=== PATIENT | female | born 1990 | race Two or more races ===

== ENCOUNTER 2018-04-06 08:41 | Emergency (ER) | payer SELFPAY ==
[~2018-04-06] VITALS: Ht 167.6 cm; Wt 72.5 kg
[2018-04-06 08:45] VITALS: BP 114/74
[2018-04-06 09:11] LABS: CULTURE INDICATED? YES; MICROSCOPIC INDICATED
[2018-04-06 11:13] LABS: BASOPHILS # (AUTO) 0.03 x10^3/uL (0-0.1); BASOPHILS % (AUTO) 1 % (0-1); EOSINOPHILS # (AUTO) 0.07 x10^3/uL (0-0.4); EOSINOPHILS % (AUTO) 1 % (1-7); LYMPHOCYTES % (AUTO) 34 % (22-44); MD NO; MEAN CORPUSCULAR HEMOGLOBIN 32.2 pg (27.0-34.8); MEAN CORPUSCULAR HGB CONC 34.4 g/dL (32.4-35.8); MEAN CORPUSCULAR VOLUME 93.6 fL (80-100); MEAN PLATELET VOLUME 8.5 fL (7.4-10.4); MONOCYTES # (AUTO) 0.33 x10^3/uL (0.2-0.8); MONOCYTES % (AUTO) 7 % (2-9); NEUTROPHILS # (AUTO) 2.86 x10^3/uL (1.8-6.8); NEUTROPHILS % (AUTO) 57 % (42-75); PLATELET COUNT 285 x10^3/uL (130-400); RED BLOOD COUNT 4.73 x10^6/uL (3.82-5.3); RED CELL DISTRIBUTION WIDTH 11.7 % (9.6-15.2)
--- NOTE | 2018-04-06 11:25 | NUR ---
NO ANSWER IN LOBBY AT THIS TIME.
[2018-04-06 11:27] LABS: ALBUMIN 3.9 g/dL (3.4-5.0); ANION GAP 7 mmol/L (5-15); CALCIUM 9.4 mg/dL (8.5-10.1); CHLORIDE 106 mmol/L (98-107)
--- NOTE | 2018-04-06 11:30 | NUR ---
NIL FOR REPEAT VS.
[2018-04-06 11:32] LABS: ALANINE AMINOTRANSFERASE 23 U/L (12-78); ALKALINE PHOSPHATASE 67 U/L (45-117); BILIRUBIN,TOTAL 0.5 mg/dL (0.2-1.0); TOTAL PROTEIN 8.1 g/dL (6.4-8.2)
--- NOTE | 2018-04-06 11:45 | NUR ---
NO ANSWER IN LOBBY AT THIS TIME.
--- NOTE | 2018-04-06 12:06 | NUR ---
NO ANSWER IN LOBBY AT THIS TIME.
== END 2018-04-06 12:08 | disposition left against medical advice (07) ==
LOC: ED 12:02
DX: R19.7 Diarrhea, unspecified (principal); R10.30 Lower abdominal pain, unspecified
CPT/HCPCS: 36415; 80053; 81001; 83690; 84703; 85025; 87086; 99283

== ENCOUNTER 2018-04-24 13:03 | Emergency (ER) | payer OTHER ==
[~2018-04-24] VITALS: Ht 167.6 cm; Wt 72.0 kg
--- NOTE | 2018-04-24 13:05 | NUR ---
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 NEURO AND CMS INTACT. CONT PULSE OX, BP, CARDIAC MONITORS APPLIED. SR ON MONITOR. VSS. SPEECH CLEAR. DENIES NAUSEA AT THIS TIME S/P ZOFRAN FROM EMS. RATES PAIN 7/10 IN CHEST, "JUST PRESSURE ON AND OFF FOR A WEEK." CALL LIGHT IN REACH. FALL PRECAUTIONS IN PLACE.
--- NOTE | 2018-04-24 13:09 | NUR ---
DR. MENDIOLA AT BEDSIDE FOR EVALUATION
[2018-04-24] MEDS ORDERED: LORazepam 2 MG/ML, 1ML ONE (13:22)
[2018-04-24] MEDS ORDERED: LORazepam 2 MG/ML, 1ML IVPush ONE (13:30)
--- NOTE | 2018-04-24 13:50 | NUR ---
PT UP AND AMBULATORY TO RESTROOM WITH STEADY GAIT FOR CLEAN CATCH UA.
[2018-04-24 13:52] LABS: ANION GAP 5 mmol/L (5-15); CALCIUM 9.3 mg/dL (8.5-10.1); CHLORIDE 111 mmol/L (98-107)
[2018-04-24 13:57] LABS: CREATININE 0.79 mg/dL (0.55-1.02); TROPONIN I < 0.015 ng/mL (0.000-0.045)
[2018-04-24] MEDS ORDERED: PLEASE ENTER HEIGHT AND WEIGHT MC SCH (14:00)
[2018-04-24 14:03] LABS: T4 (THYROXINE) 8.7 mcg/dL (4.8-13.9); THYROID STIMULATING HORMONE 0.987 mIU/L (0.358-3.740)
--- NOTE | 2018-04-24 14:06 | NUR ---
PT MEDICATED NOTED PER ORDER FOR ANXIETY AND CHEST PRESSURE. VSS. CALL LIGHT IN REACH. AWAITING CT.
[2018-04-24] MEDS ORDERED: MAALOX/HYOSCYAMINE/LIDOCAINE 45 ML BTL ONE (14:09)
[2018-04-24 14:15] LABS: MICROSCOPIC INDICATED
--- NOTE | 2018-04-24 14:15 | NUR ---
PT TO CT
[2018-04-24 14:23] LABS: CULTURE INDICATED? YES
[2018-04-24] MEDS ORDERED: MAALOX/HYOSCYAMINE/LIDOCAINE 45 ML BTL PO ONE (14:30)
--- NOTE | 2018-04-24 14:36 | NUR ---
PT BACK FROM CT. NAD NOTED. VSS. REPORTS ANXIETY IMPROVED. CALL LIGHT IN REACH.
[2018-04-24 14:47] LABS: BASOPHILS # (AUTO) 0.01 x10^3/uL (0-0.1); BASOPHILS % (AUTO) 0 % (0-1); EOSINOPHILS # (AUTO) 0.02 x10^3/uL (0-0.4); EOSINOPHILS % (AUTO) 0 % (1-7); LYMPHOCYTES # (AUTO) 1.15 x10^3/uL (1-3.4); LYMPHOCYTES % (AUTO) 16 % (22-44); MD SCAN; MEAN CORPUSCULAR HGB CONC 34.2 g/dL (32.4-35.8); MEAN CORPUSCULAR VOLUME 93.7 fL (80-100); MEAN PLATELET VOLUME 9.1 fL (7.4-10.4); MONOCYTES # (AUTO) 0.26 x10^3/uL (0.2-0.8); MONOCYTES % (AUTO) 4 % (2-9); NEUTROPHILS # (AUTO) 5.98 x10^3/uL (1.8-6.8); NEUTROPHILS % (AUTO) 81 % (42-75); PLATELET COUNT 230 x10^3/uL (130-400); RED BLOOD COUNT 4.53 x10^6/uL (3.82-5.3); RED CELL DISTRIBUTION WIDTH 12.3 % (9.6-15.2)
--- NOTE | 2018-04-24 15:20 | NUR ---
DR. MENDIOLA AT BEDSIDE DISCUSSING POC AND PAIN WITH PT. TO MEDICATE PT PER DR. MENDIOLA FOR "COMPLEX MIGRAINE LIKE SYMPTOMS," NO NEW ORDERS RECEIVED FOR CHEST PRESSURE. VSS. REMAINS SR ON MONITOR. CALL LIGHT IN REACH. FALL PRECAUTIONS IN PLACE.
[2018-04-24] MEDS ORDERED: METOCLOPRAMIDE 5 MG/ML, 2ML IVPush ONE (15:30)
[2018-04-24] MEDS ORDERED: DIPHENHYDRAMINE 50 MG/ML, 1ML IVPush ONE (15:30)
[2018-04-24] MEDS ORDERED: METOCLOPRAMIDE 5 MG/ML, 2ML ONE (15:43)
[2018-04-24] MEDS ORDERED: DIPHENHYDRAMINE 50 MG/ML, 1ML ONE (15:43)
--- NOTE | 2018-04-24 16:03 | NUR ---
PT MEDICATED NOTED PER ORDER. RESTING IN POSITION OF COMFORT. DENIES NEED TO USE RESTROOM. VSS. USING CELL PHONE. REMAINS SR ON MONITOR.
--- NOTE | 2018-04-24 16:50 | NUR ---
PT REPORTS NUMBNESS IN EXTREMITIES AND FACE HAS RESOLVED, "FEEL BETTER, JUST SLEEPY NOW." CALM, RELAXED. VSS. SR ON MONITOR, AWAITING RE-EVAL BY ERP.
[2018-04-24 17:02] VITALS: BP 109/77
--- NOTE | 2018-04-24 17:30 | NUR ---
Patient given discharge instructions and they have confirmed that they understand the instructions. Patient ambulatory with steady gait.
== END 2018-04-24 17:45 ==
LOC: ED 17:41
DX: R07.89 Other chest pain (principal)
CPT/HCPCS: 36415; 70450; 71045; 80048; 81001; 82040; 83690; 84436; 84443; 84484; 84703; 85025; 85379; 87086; 93005; 96374; 96375; 99284; J1200; J2060; J2765